=== PATIENT | male | born 1980 ===

== ENCOUNTER 2018-02-15 05:14 | Emergency (ER) | payer OTHER ==
--- NOTE | 2018-02-15 05:47 | ED PDOC ---
HPI: Skin/Bite Injury Time Seen by Provider: 02/15/18 05:41 Chief Complaint (Provider): rash History Per: Patient History/Exam Limitations: no limitations Onset/Duration Of Symptoms: Days (2) Current Symptoms Are (Timing): Still Present Quality Of Symptoms: Itching Additional Complaint(s): 37 y/o male presents for evaluation of pruritic rash x 2 days. Patient states rash started on legs, has since spread to arms, abdomen, and back. Denies known allergen, fever, facial swelling, difficulty speaking/swallowing. Patient took one Benadryl last night with little relief. Past Medical History Reviewed: Historical Data, Nursing Documentation, Vital Signs Vital Signs: Last Vital Signs Temp 98.1 F 02/15/18 05:53 Pulse 61 02/15/18 05:53 Resp 16 02/15/18 05:53 BP 126/74 02/15/18 05:53 Pulse Ox 98 02/15/18 05:53 - Medical History PMH: No Chronic Diseases - Surgical History Surgical History: No Surg Hx - Family History Family History: States: No Known Family Hx - Living Arrangements Living Arrangements: With Family - Home Medications Home Medications: Ambulatory Orders Medication Instructions Recorded Famotidine [Pepcid] 20 mg PO BID #8 tab 02/15/18 predniSONE [Prednisone] 60 mg PO DAILY #12 tab 02/15/18 - Allergies Allergies/Adverse Reactions: Allergies Allergy/AdvReac Type Severity Reaction Status Date / Time No Known Allergies Allergy Verified 02/15/18 05:50 Review of Systems ROS Statement: Except As Marked, All Systems Reviewed And Found Negative Skin: Positive for: Rash Physical Exam - Reviewed Nursing Documentation Reviewed: Yes Vital Signs Reviewed: Yes - Physical Exam Appears: Positive for: Well, Non-toxic, No Acute Distress Head Exam: Positive for: ATRAUMATIC, NORMAL INSPECTION, NORMOCEPHALIC Skin: Positive for: Rash (papular rash noted bilateral upper extremities, abdomen, chest. No drainage, temp change) Eye Exam: Positive for: Normal appearance Cardiovascular/Chest: Positive for: Regular Rate, Rhythm Respiratory: Positive for: Normal Breath Sounds Gastrointestinal/Abdominal: Positive for: Normal Exam Back: Positive for: Normal Inspection Extremity: Positive for: Normal ROM Neurologic/Psych: Positive for: Alert, Oriented - Progress ED Course And Treament: Benadryl, Pepcid, Prednsione Patient educated on findings, discharged with rx Prednisone, Pepcid. Advised to continue Benadryl PRN. Follow up PMD 2-3 days. Return precautions given. Disposition - Clinical Impression Clinical Impression: Rash and nonspecific skin eruption - Patient ED Disposition Is Patient to be Admitted: No Counseled Patient/Family Regarding: Diagnosis, Need For Followup, Rx Given - Disposition Disposition: Routine/Home Disposition Time: 06:00 Condition: IMPROVED Prescriptions: Famotidine [Pepcid] 20 mg PO BID #8 tab predniSONE [Prednisone] 60 mg PO DAILY #12 tab Instructions: Skin Rash Forms: [facility] ED School/Work Excuse Print Language: ITALIAN
[2018-02-15 05:50] VITALS: BMI 29.7
[2018-02-15 05:56] VITALS: BP 126/74; PULSE 61; RESP 16; TEMP 98.1; O2SAT 98
== END 2018-02-15 06:29 | disposition home or self-care (01) ==
LOC: H.ER 05:14
DX: R21 Rash and other nonspecific skin eruption (principal)